=== PATIENT | female | born 1960 | race Caucasian/White ===

== ENCOUNTER → 2017-01-10 | Outpatient (CLI) | payer OTHER | LOC: LAB 12:03 | DX: J45.40 Moderate persistent asthma, uncomplicated (principal) | CPT/HCPCS: 36415; 71020; 82785 ==

== ENCOUNTER → 2017-01-10 | Outpatient (CLI) | payer OTHER | LOC: HEART 5 09:47 | DX: J44.9 Chronic obstructive pulmonary disease, unspecified (principal) | CPT/HCPCS: 94060 ==

== ENCOUNTER → 2020-10-01 | Outpatient (CLI) | payer OTHER | LOC: HEART 5 15:01 | DX: J45.50 Severe persistent asthma, uncomplicated (principal); J30.9 Allergic rhinitis, unspecified; R94.2 Abnormal results of pulmonary function studies | CPT/HCPCS: 94060 ==

== ENCOUNTER → 2022-01-27 | Outpatient (CLI) | payer OTHER | LOC: HEART 5 15:02 | DX: J45.50 Severe persistent asthma, uncomplicated (principal) | CPT/HCPCS: 94060 ==